=== PATIENT | female | born 1995 | race Caucasian/White ===

== ENCOUNTER 2016-11-30 05:50 | Inpatient (IN) | payer MEDICAID ==
[~2016-11-30] VITALS: Ht 157.5 cm; Wt 78.2 kg
[2016-11-30 06:22] VITALS: BP 132/73; PULSE 73; RESP 18
[2016-11-30] MEDS ORDERED: LACTATED RINGER'S 1,000 ML IV SCH (06:27)
[2016-11-30] MEDS ORDERED: CEFAZOLIN 2 GM/50 ML (PMX) 50 ML IV SCH (06:30)
[2016-11-30] MEDS ORDERED: CARBOPROST 250 MCG INJ IM PRN ×2 (06:30→11:30)
[2016-11-30] MEDS ORDERED: MISOPROSTOL 200 MCG TAB PR PRN ×2 (06:30→11:30)
[2016-11-30] MEDS ORDERED: OXYTOCIN 30 UNITS/LR 500 ML IV PRN ×2 (06:30→11:30)
[2016-11-30] MEDS ORDERED: METHYLERGONOVINE 0.2 MG INJ IM PRN ×2 (06:30→11:30)
[2016-11-30] MEDS ORDERED: CEFAZOLIN 2 GM/50 ML (PMX) 50 ML IVPB ONE (06:50)
[2016-11-30] MEDS ORDERED: LACTATED RINGER'S 1,000 ML IV ONE (07:04)
[2016-11-30] MEDS ORDERED: ONDANSETRON 4 MG INJ IV ONE (07:30)
[2016-11-30] MEDS ORDERED: CITRIC ACID/NA CITRATE 30 ML CUP PO ONE (07:30)
[2016-11-30 07:40] LABS: BASOPHILS % 0.4 % (0.0-2.0); EOSINOPHILS # 0.1 10^3/ul (0.0-0.5); EOSINOPHILS % 1.6 % (0.0-7.0); HEMATOCRIT 34.6 % (37.0-47.0); HEMOGLOBIN 11.1 g/dl (12.0-16.0); MEAN CORPUSCULAR HEMOGLOBIN 28.7 pg (29.0-33.0); MEAN CORPUSCULAR HGB CONC 32.1 g/dl (32.0-37.0); MEAN CORPUSCULAR VOLUME 89.4 fl (82.0-101.0); MEAN PLATELET VOLUME 10.2 fl (7.4-10.4); MONOCYTE # 0.5 10^3/ul (0.3-0.9); NEUTROPHIL # 4.7 10^3/ul (1.6-7.5); NEUTROPHILS % 62.7 % (39.0-77.0); PLATELET COUNT 253 10^3/UL (140-415); RED BLOOD COUNT 3.87 10^6/ul (4.20-5.40); RED CELL DISTRIBUTION WIDTH 14.8 % (11.5-14.5); WHITE BLOOD COUNT 7.4 10^3/ul (4.8-10.8)
[2016-11-30 07:48] LABS: INR 0.84; PROTIME 11.5 Sec (12.2-14.2); PT RATIO 0.9
[2016-11-30 07:49] LABS: PARTIAL THROMBOPLASTIN TIME 25.1 Sec (25.0-35.0)
--- NOTE | 2016-11-30 07:53 | PREOPHP ---
DATE OF ADMISSION: 11/30/2016 Ms. Latasha Crowell is a 21-year-old 2, para 1, EDC 12/06/2016, intrauterine at 39 wee ks gestational age, admitted today for elective repeat delivery. She denies any vaginal bl eeding or discharge. Her initial care took place at [facility] and she transferred her care to care at approximately 20 weeks' gestational age. PAST MEDICAL HISTORY: None. MEDICATIONS: vitamins. PAST SURGICAL HISTORY: x1 previous section. OBSTETRIC HISTORY: x1 previous section. GYNECOLOGIC HISTORY: 12, regular, 3 to 4 days. Denies any sexually transmitted diseases. Sexually active with 1 partner. SOCIAL HISTORY: Denies any smoking, drugs or alcohol. FAMILY HISTORY: None. REVIEW OF SYSTEMS: All within normal except history of present illness. PHYSICAL EXAMINATION: HEENT: Within normal. LUNGS: CTA bilateral. CARDIOVASCULAR: S1, S2, regular rhythm. ABDOMEN: Gravid, nontender. Negative CVA bilateral. EXTREMITIES: Negative edema. No calf tenderness. PELVIC: Vaginal exam deferred. heart tracing category 1. Tocometer regular contractio ns. ASSESSMENT: A 21-year-old 2, para 1, intrauterine at 39 weeks gestational age in labor, previous section x1, desires elective repeat delivery with bilateral tubal sterilization. PLAN: Consent for repeat with bilateral tubal ligation. I explained in detail that the b ilateral tubal ligation is permanent and there is a high regret rate with patients with less than ag e 30; however, the patient insists for tubal sterilization. Dictated By: KADEEM RICKS/JENNIFER Conf#: [id number] DID#: [id number]
[2016-11-30] MEDS ORDERED: morphine SULFATE/PF (10 MG/10 ML) INJ ONE (08:22)
[2016-11-30] MEDS ORDERED: FENTAnyl 50 MCG/ML VIAL ONE (08:22)
[2016-11-30] MEDS ORDERED: OXYTOCIN 30 UNITS/LR 500 ML IV ONE (09:15)
[2016-11-30] MEDS ORDERED: METOCLOPRAMIDE 10 MG INJ ONE (09:15)
[2016-11-30] MEDS ORDERED: MISOPROSTOL 200 MCG TAB ONE (10:02)
[2016-11-30] MEDS: OXYTOCIN 30 UNITS/LR 500 ML IV SCH ×2 (10:22→12:56)
[2016-11-30] MEDS ORDERED: DIPHENHYDRAMINE 50 MG INJ IV PRN (10:30)
[2016-11-30] MEDS ORDERED: TRIMETHOBENZAMIDE 100 MG/ML VIAL IM PRN (10:30)
[2016-11-30] MEDS ORDERED: morphine 4 MG/ML VIAL IV PRN (10:30)
[2016-11-30] MEDS ORDERED: ONDANSETRON 4 MG INJ IV PRN (10:30)
[2016-11-30] MEDS ORDERED: NALBUPHINE HCL (10 MG/1 ML) INJ IV PRN (10:30)
[2016-11-30] MEDS ORDERED: morphine 2 MG INJ IV PRN (10:30)
[2016-11-30] MEDS ORDERED: NALOXONE (0.4 MG/ML) INJ IV PRN (10:30)
[2016-11-30] MEDS: LACTATED RINGER'S 1,000 ML IV SCH ×2 (11:04→16:05)
--- NOTE | 2016-11-30 11:04 | SIPON ---
Date/Time of Note Date/Time of Note DATE: 11/30/16 TIME: 11:01 Operative Report Preoperative Diagnosis 21-year-old 2 para 1 intrauterine at 39 weeks gestational age previous 1 desires elective repeat delivery with bilateral tubal sterilization Postoperative Diagnosis Same Operation/Procedure Performed Repeat low transverse delivery with bilateral tubal ligation Adryan method Surgeon see signature line emergency medicine physician assistant Dr. Khanh Lucas Anesthesia: spinal Estimated blood loss: other (500) Transfusion Required none Specimen Portion of the right and left fallopian tube Grafts/Implants none Complications none KADEEM ANGELO MD Nov 30, 2016 11:04
[2016-11-30] MEDS: CEFAZOLIN 2 GM/50 ML (PMX) 50 ML IV SCH ×2 (11:30→18:32)
[2016-11-30] MEDS ORDERED: LANOLIN 7 GM TUBE TOP PRN (11:30)
[2016-11-30] MEDS: KETOROLAC 30 MG INJ IV PRN ×2 (13:10→18:23)
[2016-11-30 13:30] VITALS: BP 109/58; PULSE 66; RESP 18
[2016-11-30 15:30] VITALS: BP 108/57; PULSE 63; RESP 18
[2016-11-30 20:40] VITALS: BP 110/62; PULSE 65; RESP 18
[2016-11-30] MEDS: SENNA/DOCUSATE NA (8.6MG/50MG) TAB PO SCH (20:46)
[2016-12-01] VITALS (8 sets, daily range): BP systolic 98–131; BP diastolic 53–90; PULSE 66–116; RESP 18–19
[2016-12-01] MEDS: LACTATED RINGER'S 1,000 ML IV SCH ×3 (00:07→20:58)
[2016-12-01] MEDS: KETOROLAC 30 MG INJ IV PRN (00:07)
[2016-12-01] MEDS: CEFAZOLIN 2 GM/50 ML (PMX) 50 ML IV SCH (02:49)
[2016-12-01] MEDS: SENNA/DOCUSATE NA (8.6MG/50MG) TAB PO SCH ×2 (08:38→21:00)
[2016-12-01] MEDS: IBUPROFEN 600 MG TAB PO SCH ×4 (08:38→23:50)
[2016-12-01] MEDS ORDERED: OXYCODONE/ACETAMINOPHEN (5/325) TAB PO PRN ×2 (09:09)
[2016-12-01] MEDS ORDERED: CEFAZOLIN 2 GM/50 ML (PMX) 50 ML IVPB SCH (10:00)
[2016-12-01 10:08] LABS: BASOPHILS % 0.1 % (0.0-2.0); EOSINOPHILS # 0.1 10^3/ul (0.0-0.5); EOSINOPHILS % 1.4 % (0.0-7.0); HEMATOCRIT 26.3 % (37.0-47.0); HEMOGLOBIN 8.4 g/dl (12.0-16.0); LYMPHOCYTES # 1.7 10^3/ul (0.8-2.9); LYMPHOCYTES % 20.8 % (15.0-51.0); MEAN CORPUSCULAR HEMOGLOBIN 29.1 pg (29.0-33.0); MEAN CORPUSCULAR HGB CONC 31.9 g/dl (32.0-37.0); MEAN PLATELET VOLUME 9.9 fl (7.4-10.4); MONOCYTE # 0.5 10^3/ul (0.3-0.9); MONOCYTES % 5.7 % (0.0-11.0); NEUTROPHIL # 5.7 10^3/ul (1.6-7.5); PLATELET COUNT 217 10^3/UL (140-415); RED BLOOD COUNT 2.89 10^6/ul (4.20-5.40); WHITE BLOOD COUNT 8.1 10^3/ul (4.8-10.8)
--- NOTE | 2016-12-01 11:03 | OPR ---
DATE OF OPERATION: 11/30/2016 PREOPERATIVE DIAGNOSIS: A 21-year-old 2, para 1, intrauterine at 39 weeks gestati onal age in labor, previous x1, desires elective repeat delivery with bilateral t ubal sterilization. Declined vaginal after . POSTOPERATIVE DIAGNOSIS: A 21-year-old 2, para 1, intrauterine at 39 weeks gestat ional age in labor, previous x1, desires elective repeat delivery with bilateral tubal sterilization. Declined vaginal after . OPERATION PERFORMED: Repeat low transverse delivery via Pfannenstiel incision with bilater al tubal ligation, Sargents method. SURGEON: Glenn Julian MD. PLUMBING WAREHOUSE HELPER: Dr. Almodovar. ANESTHESIA: Spinal. COMPLICATIONS: None. ESTIMATED BLOOD LOSS: 500 mL. FINDINGS: A viable female, 9 and 9 respectively at 1 and 5 minutes. Weight 6 pounds 11 ounce s. Normal uterus, tubes and ovaries. PATHOLOGY: Portion of the right and left fallopian tube. PROCEDURE: After explaining the risks, benefits and alternatives with the patient, consent signed i n chart. The patient was taken to the operating room where spinal anesthesia was found to be adequa te. She was then prepared in normal sterile fashion in a dorsal supine position with a leftward til t. A Pfannenstiel skin incision was then made with a scalpel and carried to the underlying layer of the fascia. The fascia was incised in the midline and the incision was extended laterally with the Aviles scissors. The superior aspect of the fascial incision was grasped with curved clamps, elevate d and the underlying rectus muscles dissected off bluntly. Attention was then turned to the inferio r aspect of the incision which in similar fashion was grasped, tented up with curved clamps and the rectus muscles dissected off bluntly. The rectus muscle was in midline and the peritoneum identified, tented up and entered sharply with Metzenbaum scissors. The peritoneal incision was ex tended superiorly and inferiorly with good visualization of the bladder. The bladder blade was then inserted and the vesicouterine peritoneum identified, grasped with pickups and entered sharply with Metzenbaum scissors. This incision was extended laterally and a bladder flap created digitally. T bladder blade was then reinserted and the lower segment incised in transverse fashion with the hi alpel. The uterine incision was extended laterally. The bladder blade was removed and the 's head delivered atraumatically. The nose and mouth were suctioned and cord clamped and cut. The in krista was handed off to awaiting facialist. The placenta was then removed. The uterus chrissy r of all clots and debris. The uterine incision was repaired with 1-0 chromic in a running locked f ashion. A second layer of same suture was used for imbrication obtaining excellent hemostasis. At this point, the left fallopian tube was identified. The Grant clamp was then used to grasp the tube approximately 4 cm from the cornual region. A 3 cm segment of tube was ligated with a free ti e of plain gut and excised. Good hemostasis was noted. Similarly, the right fallopian tube was lig ated. The uterus was returned to the abdomen. The gutters were cleared of all clots. The peritone um and rectus abdominis muscles were reapproximated with 3-0 Vicryl in interrupted fashion. The fas dino was reapproximated with 0 Vicryl in a running fashion. The subcutaneous tissue was reapproximat ed with 2-0 plain gut in a running fashion. The skin was closed with absorbable douglas. The patie nt tolerated procedure well. Sponge, lap and needle counts correct x2. The patient was taken to re covery room in stable condition. Dictated By: GLENN RICKS/JENNIFER Conf#: [id number] DID#: [id number]
[2016-12-01 18:06] LABS: EOSINOPHILS # 0.1 10^3/ul (0.0-0.5); EOSINOPHILS % 0.7 % (0.0-7.0); HEMATOCRIT 28.6 % (37.0-47.0); HEMOGLOBIN 9.3 g/dl (12.0-16.0); LYMPHOCYTES # 1.6 10^3/ul (0.8-2.9); LYMPHOCYTES % 16.5 % (15.0-51.0); MEAN CORPUSCULAR HEMOGLOBIN 29.9 pg (29.0-33.0); MEAN CORPUSCULAR HGB CONC 32.5 g/dl (32.0-37.0); MONOCYTE # 0.3 10^3/ul (0.3-0.9); MONOCYTES % 3.1 % (0.0-11.0); NEUTROPHIL # 7.5 10^3/ul (1.6-7.5); NEUTROPHILS % 78.6 % (39.0-77.0); PLATELET COUNT 237 10^3/UL (140-415); RED BLOOD COUNT 3.11 10^6/ul (4.20-5.40); WHITE BLOOD COUNT 9.6 10^3/ul (4.8-10.8)
--- NOTE | 2016-12-01 21:26 | QN ---
Documentation Comment Progress note postop day 1 Patient was seen and evaluated awake alert oriented 3 denies any headache nausea vomiting shortness of breath visual changes epigastric pain Vital signs stable Abdomen positive dressing clean no distention Extremity negative edema no calf tenderness Assessment status post delivery with bilateral tubal ligation postop day 1 stable afebrile Plan iron supplement KADEEM ANGELO MD Dec 01, 2016 21:26
[2016-12-02] MEDS: LACTATED RINGER'S 1,000 ML IV SCH ×3 (03:04→20:42)
[2016-12-02 03:40] VITALS: BP 109/69; PULSE 76; RESP 18
[2016-12-02] MEDS: IBUPROFEN 600 MG TAB PO SCH (05:47)
[2016-12-02 08:00] VITALS: BP 103/55; PULSE 62; RESP 18
[2016-12-02] MEDS: FERROUS SULFATE (EC) 325 MG TAB PO SCH ×2 (09:48→21:52)
[2016-12-02] MEDS: SENNA/DOCUSATE NA (8.6MG/50MG) TAB PO SCH ×2 (09:48→21:52)
[2016-12-02] MEDS ORDERED: IBUPROFEN 800 MG TAB PO SCH (13:00)
[2016-12-02 16:00] VITALS: BP 107/52; PULSE 72; RESP 20
--- NOTE | 2016-12-02 18:47 | PD.PPDC ---
SAS SQL DEVELOPER Discharge Instruction Condition Patient Condition: Fair Diet Diet: Resume Regular Diet Activity/Restrictions Activity: Normal Activity May Shower Wound/Drain Care Instructions Wound/Drain Care Instructions: Wash with soap and water Keep clean and dry Follow-up Follow-up with Physician: 2, Week/Weeks Return to clinic for STUDENT DEVELOPMENT DEAN Instructions: Fever greater than 101 Chills Worsening abdominal pain Excessive Vaginal Bleeding More than 2 pads per hour Unable to tolerate diet OB Instructions: Breast Tenderness Depression Blurried Vision Headache Surgical Instructions: Incisional Drainage Incisional Redness KADEEM ANGELO MD Dec 02, 2016 18:47
--- NOTE | 2016-12-02 18:49 | QN ---
Documentation Comment Progress note postop day 2 Patient was seen and evaluated awake alert oriented 3 denies any headache nausea vomiting shortness of breath visual changes epigastric pain Positive ambulation tired diet positive flatulence positive bowel movement Vital signs stable afebrile Abdomen soft nontender uterine fundus below umbilicus firm clean dry and intact Extremity negative edema no calf tenderness Assessment status post repeat low transverse delivery with bilateral tubal ligation postop day 2 stable afebrile Discharge home tomorrow follow-up in the office in 2 weeks for care KADEEM ANGELO MD Dec 02, 2016 18:49
[2016-12-02 19:30] VITALS: BP 114/58; PULSE 75; RESP 19
[2016-12-02] MEDS ORDERED: INFLUENZA VIRUS VACCINE 0.5 ML (DISPENSING) IM* ONE (19:30)
[2016-12-02] MEDS: IBUPROFEN 800 MG TAB PO SCH (21:53)
[2016-12-03] MEDS: LACTATED RINGER'S 1,000 ML IV SCH (02:07)
--- NOTE | 2016-12-03 03:24 | DS ---
DATE OF ADMISSION: 11/30/2016 DATE OF DISCHARGE: PRIMARY DIAGNOSIS: A 21-year-old 2, para 1, intrauterine at 39 weeks gestational age in labor, previous x1, desires elective repeat delivery with bilateral tubal sterilization, declines vaginal after . PROCEDURE: Repeat low transverse delivery with bilateral tubal ligation. CONDITION ON DISCHARGE: Stable. ACTIVITY: None per vagina, no lifting x6 weeks. DIET: Regular. MEDICATIONS ON DISCHARGE: 1. Motrin. 2. Percocet. 3. Iron. 4. Colace. DISCHARGE SUMMARY: Ms. Latasha Crowell is a 21-year-old 2, para 2, status post repeat low trans verse delivery with bilateral tubal ligation on 11/30/2016. She had a viable female, 9 and 9 respectively at 1 and 5 minutes. Weight 6 pounds 11 ounces. She had an uneventful postop day 1 and 2. She will be discharged on postop day 3. Her incision is clean, dry, and intact. She is ambulating, tolerating diet, positive flatulence, positive bowel movement. She will follow up in the office in 2 weeks for /postop care. Dictated By: KADEEM RICKS/JENNIFER Conf#: [id number] DID#: [id number]
[2016-12-03 03:40] VITALS: BP 101/53; PULSE 67; RESP 19
[2016-12-03] MEDS: IBUPROFEN 800 MG TAB PO SCH ×2 (05:38→13:14)
[2016-12-03 08:00] VITALS: BP 107/62; PULSE 70; RESP 18
[2016-12-03] MEDS: FERROUS SULFATE (EC) 325 MG TAB PO SCH (08:26)
[2016-12-03] MEDS: SENNA/DOCUSATE NA (8.6MG/50MG) TAB PO SCH (08:27)
== END 2016-12-03 17:59 | disposition home or self-care (01) | DRG 766 ==
LOC: L-D 05:50 → PP1 13:54
PROVIDERS: ADMIT Obstetrics & Gynecology; ATTEND Obstetrics & Gynecology
PROC: 0UB70ZZ Excision of Bilateral Fallopian Tubes, Open Approach (ICD-10-PCS; 2016-11-30)
PROC: 10D00Z1 Extraction of Products of Conception, Low, Open Approach (ICD-10-PCS; principal; 2016-11-30 07:30)
PROC: 3E0234Z Introduction of Serum, Toxoid and Vaccine into Muscle, Percutaneous Approach (ICD-10-PCS; 2016-12-02)
DX: O34.211 Maternal care for low transverse scar from previous cesarean delivery (principal); O99.214 Obesity complicating childbirth; E66.9 Obesity, unspecified; Z30.2 Encounter for sterilization; Z37.0 Single live birth; Z3A.39 39 weeks gestation of pregnancy; Z68.31 Body mass index [BMI] 31.0-31.9, adult; Z23 Encounter for immunization
CPT/HCPCS: 85025; 85610; 85730; 86592; 86850; 86900; 86901; 88302; 90686; 99464; J0690; J1885; J2210; J2274; J2405; J2590; J2765; J3010; J7120